=== PATIENT | male | born 1985 | race American Indian/Alaskan Native ===

== ENCOUNTER 2017-04-02 21:15 | Emergency (ER) | payer MEDICAID, MEDICARE, OTHER ==
[2017-04-02 21:15] VITALS: BMI 29.9
[2017-04-02 21:26] VITALS: BP 149/74; PULSE 82; RESP 16; TEMP 98.6; O2SAT 100
--- NOTE | 2017-04-02 21:40 | ED PDOC ---
HPI: Back Time Seen by Provider: 04/02/17 21:33 Chief Complaint (Nursing): Back Pain Chief Complaint (Provider): low back pain History Per: Patient Additional Complaint(s): 32-year-old male with history of back pain presents to emergency department with flareup of pain that started earlier today. Patient was lying down and when he tried to get up he felt sharp pain in lower back radiating to bilateral lower extremities. Patient was able to obtain some comfort by sitting up in a chair. He took a percocet at home and states this did not help the pain. Patient states he has no bowel or bladder dysfunction. He rates current pain as 8/10. PMD: [facility] Past Medical History Reviewed: Historical Data, Nursing Documentation, Vital Signs Vital Signs: Last Vital Signs Temp 98.6 F 04/02/17 21:24 Pulse 82 04/02/17 21:24 Resp 16 04/02/17 21:24 BP 149/74 04/02/17 21:24 Pulse Ox 100 04/02/17 21:24 - Medical History PMH: Asthma, Back Problems (sciatica), Migraine (hx) - Surgical History Surgical History: No Surg Hx - Family History Family History: States: No Known Family Hx - Living Arrangements Living Arrangements: With Family - Social History Current smoker - smoking cessation education provided: No Alcohol: None Drugs: Denies - Home Medications Home Medications: Ambulatory Orders Medication Instructions Recorded Ibuprofen [Motrin] 600 mg PO Q6 PRN #10 tab 03/23/14 Acetaminophen/Oxycodone Hydr 1 tab PO Q6 PRN #5 tab 03/27/14 [Percocet 325 mg-5 mg] Ibuprofen [Motrin] 600 mg PO Q6 PRN #20 tab 03/27/14 diaZEpam [Valium] 5 mg PO BID PRN #10 tab 03/27/14 Tobramycin [Tobramycin 5 ml] 1 drop RIGHTEYE Q6 #0 stefany 05/01/14 Albuterol Sulfate [Albuterol Hfa] 0.09 mg IH QID PRN #30 ml 07/25/14 Azithromycin [Zithromax] 250 mg PO DAILY #6 tab 07/25/14 Naproxen [Naprosyn] 500 mg PO BID #20 tab 12/15/14 Tizanidine Hydrochloride 4 mg PO Q6 PRN #20 tab 12/15/14 [Tizanidine HCl] traMADol [Ultram] 50 mg PO QID PRN #20 tab 12/15/14 Albuterol 1 puff IH Q4 PRN #1 inh 03/16/15 Azithromycin [Zithromax Z-Missael] 250 mg PO DAILY #1 packet 03/16/15 Fluticasone Propionate [Flonase] 1 spr ELAINE BID #1 bottle 03/16/15 Guaifenesin/Dextromethorphan 1 - 2 ter PO Q12 #20 ter 03/16/15 [Mucinex Dm 30 mg-600 mg] Ibuprofen [Motrin Tab] 800 mg PO Q8 #20 tab 08/04/15 Oxycodone HCl/Acetaminophen 1 tab PO Q4 #10 tab 08/04/15 [Percocet 325 mg-5 mg] Cyclobenzaprine [Cyclobenzaprine 10 mg PO Q8 PRN #30 tab 11/04/15 HCl] Fluticasone Propionate [Flonase] 2 spr NS DAILY PRN #1 bottle 11/04/15 Naproxen [Naprosyn] 500 mg PO BID PRN #30 tab 11/04/15 Albuterol HFA [Ventolin HFA 90 2 puff IH [id number] #1 inh 11/09/15 mcg/actuation (8 g)] Prednisone 50 mg PO DAILY #4 tablet 11/09/15 Promethazine HCl/Codeine 5 ml PO Q4 PRN #100 ml 11/09/15 [Prometh-Codein 6.25-10 mg/5 ml] traMADol [Ultram] 50 mg PO Q6H PRN #15 tab 03/27/16 Acetaminophen with Codeine 1 tab PO Q6 #10 tab 03/28/16 [Tylenol with Codeine No. 3 300 mg-30 mg] Cyclobenzaprine [Cyclobenzaprine 10 mg PO TID PRN #20 tab 04/02/17 HCl] Nabumetone [Relafen] 500 mg PO BID #20 tab 04/02/17 - Allergies Allergies/Adverse Reactions: Allergies Allergy/AdvReac Type Severity Reaction Status Date / Time No Known Allergies Allergy Verified 04/02/17 21:24 Review of Systems ROS Statement: Except As Marked, All Systems Reviewed And Found Negative Genitourinary Male: Negative for: Dysuria, Frequency, Incontinence Musculoskeletal: Positive for: Back Pain, Leg Pain Physical Exam - Reviewed Nursing Documentation Reviewed: Yes Vital Signs Reviewed: Yes - Physical Exam Appears: Positive for: Well, Non-toxic, No Acute Distress Skin: Negative for: Rash Eye Exam: Positive for: Normal appearance Cardiovascular/Chest: Positive for: Regular Rate, Rhythm Respiratory: Positive for: Normal Breath Sounds Gastrointestinal/Abdominal: Positive for: Soft. Negative for: Tenderness, Distended, Guarding, Rebound Back: Positive for: Vertebral Tenderness (Tenderness across the lumbar region with palpable muscle spasm). Negative for: L CVA Tenderness, R CVA Tenderness Extremity: Positive for: Normal ROM. Negative for: Deformity Neurologic/Psych: Positive for: Alert, Oriented, Gait (steady) - ECG O2 Sat by Pulse Oximetry: 100 Pulse Ox Interpretation: Normal Medical Decision Making Medical Decision Making: Impression: Back pain and sciatica, for Plan: IM toradol PO flexeril PO tylenol Patient feels better after meds given. Rx given for skelaxin and relafen. Patient was advised to follow up with clinic in 1-2 days. Disposition - Clinical Impression Clinical Impression: Sciatica, Back pain - Patient ED Disposition Is Patient to be Admitted: No Counseled Patient/Family Regarding: Diagnosis, Need For Followup, Rx Given - Disposition Referrals: [facility] [Outside] Disposition: Routine/Home Disposition Time: 22:46 Condition: STABLE Additional Instructions: Take rx meds as directed as needed for pain. Follow up with clinic in 1-2 days. Prescriptions: Cyclobenzaprine [Cyclobenzaprine HCl] 10 mg PO TID PRN #20 tab PRN Reason: Muscle Spasm Nabumetone [Relafen] 500 mg PO BID #20 tab Instructions: Back Pain (ED), Sciatica (ED) Forms: [employer] (Turkish), [facility] ED School/Work Excuse
== END 2017-04-02 22:48 | disposition home or self-care (01) ==
LOC: H.ER 21:15
DX: M54.30 Sciatica, unspecified side (principal)
CPT/HCPCS: 96372; 99282; J1885

== ENCOUNTER 2017-11-01 21:43 | Emergency (ER) | payer SELFPAY ==
[2017-11-01 21:43] VITALS: BMI 29.9
[2017-11-01 21:53] VITALS: BP 133/85; PULSE 68; RESP 16; TEMP 98; O2SAT 98
--- NOTE | 2017-11-01 22:52 | ED PDOC ---
Upper Extremity Pain/Injury Time Seen by Provider: 11/01/17 22:02 Chief Complaint (Nursing): Abnormal Skin Integrity History Per: Patient History/Exam Limitations: no limitations Additional Complaint(s): 32-year-old male presents to the emergency room after sustaining a laceration to the left second digit when he was using a knife to open an air sealed bag of frozen meat. Records no numbness, decrease in range of motion, any other injury. Has no additional complaints. Tetanus vaccination is up-to-date. Past Medical History Vital Signs: Last Vital Signs Temp 98.0 F 11/01/17 21:52 Pulse 68 11/01/17 21:52 Resp 16 11/01/17 21:52 BP 133/85 11/01/17 21:52 Pulse Ox 98 11/01/17 21:52 - Medical History PMH: Asthma, Back Problems (sciatica), GERD, Migraine (hx) - Family History Family History: States: Unknown Family Hx - Immunization History Hx Tetanus Toxoid Vaccination: Yes Hx Influenza Vaccination: Yes Hx Pneumococcal Vaccination: Yes - Home Medications Home Medications: Ambulatory Orders Medication Instructions Recorded Ibuprofen [Motrin] 600 mg PO Q6 PRN #10 tab 03/23/14 Acetaminophen/Oxycodone Hydr 1 tab PO Q6 PRN #5 tab 03/27/14 [Percocet 325 mg-5 mg] Ibuprofen [Motrin] 600 mg PO Q6 PRN #20 tab 03/27/14 diaZEpam [Valium] 5 mg PO BID PRN #10 tab 03/27/14 Tobramycin [Tobramycin 5 ml] 1 drop RIGHTEYE Q6 #0 stefany 05/01/14 Albuterol Sulfate [Albuterol Hfa] 0.09 mg IH QID PRN #30 ml 07/25/14 Azithromycin [Zithromax] 250 mg PO DAILY #6 tab 07/25/14 Naproxen [Naprosyn] 500 mg PO BID #20 tab 12/15/14 Tizanidine Hydrochloride 4 mg PO Q6 PRN #20 tab 12/15/14 [Tizanidine HCl] traMADol [Ultram] 50 mg PO QID PRN #20 tab 12/15/14 Albuterol 1 puff IH Q4 PRN #1 inh 03/16/15 Azithromycin [Zithromax Z-Missael] 250 mg PO DAILY #1 packet 03/16/15 Fluticasone Propionate [Flonase] 1 spr ELAINE BID #1 bottle 03/16/15 Guaifenesin/Dextromethorphan 1 - 2 ter PO Q12 #20 ter 03/16/15 [Mucinex Dm 30 mg-600 mg] Ibuprofen [Motrin Tab] 800 mg PO Q8 #20 tab 08/04/15 Oxycodone HCl/Acetaminophen 1 tab PO Q4 #10 tab 08/04/15 [Percocet 325 mg-5 mg] Cyclobenzaprine [Cyclobenzaprine 10 mg PO Q8 PRN #30 tab 11/04/15 HCl] Fluticasone Propionate [Flonase] 2 spr NS DAILY PRN #1 bottle 11/04/15 Naproxen [Naprosyn] 500 mg PO BID PRN #30 tab 11/04/15 Albuterol HFA [Ventolin HFA 90 2 puff IH [id number] #1 inh 11/09/15 mcg/actuation (8 g)] Prednisone 50 mg PO DAILY #4 tablet 11/09/15 Promethazine HCl/Codeine 5 ml PO Q4 PRN #100 ml 11/09/15 [Prometh-Codein 6.25-10 mg/5 ml] traMADol [Ultram] 50 mg PO Q6H PRN #15 tab 03/27/16 Acetaminophen with Codeine 1 tab PO Q6 #10 tab 03/28/16 [Tylenol with Codeine No. 3 300 mg-30 mg] Cyclobenzaprine [Cyclobenzaprine 10 mg PO TID PRN #20 tab 04/02/17 HCl] Nabumetone [Relafen] 500 mg PO BID #20 tab 04/02/17 - Allergies Allergies/Adverse Reactions: Allergies Allergy/AdvReac Type Severity Reaction Status Date / Time No Known Allergies Allergy Verified 04/02/17 21:24 Review of Systems Constitutional: Negative for: Fever, Malaise Musculoskeletal: Negative for: Arm Pain, Back Pain Skin: Negative for: Rash, Lesions Physical Exam - Physical Exam Comments: GENERAL APPEARANCE: Patient is awake, alert, oriented x 3, in mild painful distress. SKIN: Warm, (-) rash, (-) lesions. UPPER EXTREMITY: (+) 2 cm L shaped laceration to the volar distal L 2nd digit, (-) tenderness, (-) swelling, (-) ecchymosis, (-) deformity. Tendon function intact. (-) distal neurovascular deficit. 2 point discrimination. Remainder of hand, digits and wrist: (-) injury. - ECG O2 Sat by Pulse Oximetry: 98 Medical Decision Making Medical Decision Making: Plan - Laceration repair with Dermabond - Tylenol PO Advised to follow up with the clinic in 1-2 days without fail. Advised on proper wound care. Return to the emergency room at any time for any new or worsening symptoms. Patient states he fully agrees with and understands discharge instructions. States that he agrees with the plan and disposition. Verbalized and repeated discharge instructions and plan. I have given the patient opportunity to ask any additional questions. Procedures - Laceration/Wound Repair Left Finger Wound Length (cm): 2 Wound's Depth, Shape: linear (L shaped ) Wound Explored: clean (irrigated with water) Wound Repaired With: Skin adhesive Wound Complexity: Simple Progress: Patient tolerated the procedure well. Disposition - Clinical Impression Clinical Impression: Finger laceration - Patient ED Disposition Is Patient to be Admitted: No Counseled Patient/Family Regarding: Diagnosis, Need For Followup - Disposition Referrals: [facility] [Outside] Disposition: Routine/Home Disposition Time: 22:10 Condition: STABLE Additional Instructions: Thank you for letting us take care of you today. You were treated for finger laceration. The emergency medical care you received today was directed at your acute symptoms. Avoid getting dermabond wet. Return to the Emergency Department if your symptoms worsen, do not improve, or if you have any other problems. Please contact your doctor in 2 days for re-evaluation and follow up / or call one of the physicians/clinics you have been referred to that are listed on the Patient Visit Information form that is included in your discharge packet. Bring any paperwork you were given at discharge with you along with any medications you are taking to your follow up visit. Our treatment cannot replace ongoing medical care by a primary care provider (PCP) outside of the emergency department. Thank you for allowing the [facility] team to be part of your care today. 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
== END 2017-11-01 23:12 | disposition home or self-care (01) ==
LOC: H.ER 21:43
DX: S61.211A Laceration without foreign body of left index finger without damage to nail, initial encounter (principal); W26.0XXA Contact with knife, initial encounter; Y92.89 Other specified places as the place of occurrence of the external cause; K21.9 Gastro-esophageal reflux disease without esophagitis; J45.909 Unspecified asthma, uncomplicated

== ENCOUNTER 2018-03-11 11:01 | Emergency (ER) | payer OTHER ==
[2018-03-11 11:01] VITALS: BMI 29.9
[2018-03-11 11:18] VITALS: BP 123/82; PULSE 94; TEMP 97; O2SAT 98
[2018-03-11 11:47] VITALS: RESP 16
--- NOTE | 2018-03-11 12:34 | ED PDOC ---
Upper Extremity Pain/Injury Time Seen by Provider: 03/11/18 11:41 Chief Complaint (Nursing): Upper Extremity Problem/Injury Chief Complaint (Provider): Left upper arm pain, hit against a wall History Per: Patient History/Exam Limitations: no limitations Onset/Duration Of Symptoms: Days Current Symptoms Are (Timing): Still Present Additional Complaint(s): 32 yo male with history of GERD and asthma presents for evaluation of left upper arm pain after walking into a wall. No fever/chills. Pt states he is unable to do the physical work at his job due to pain. PT took tylenol at home. Past Medical History Reviewed: Historical Data, Nursing Documentation, Vital Signs Vital Signs: Last Vital Signs Temp 97 F L 03/11/18 11:43 Pulse 94 H 03/11/18 11:43 Resp 16 03/11/18 11:43 BP 123/82 03/11/18 11:43 Pulse Ox 98 03/11/18 11:43 - Medical History PMH: Asthma, Back Problems (sciatica), GERD, Migraine (hx) - Surgical History Surgical History: No Surg Hx - Family History Family History: States: Unknown Family Hx - Living Arrangements Living Arrangements: With Family - Social History Current smoker - smoking cessation education provided: No Alcohol: None Drugs: Denies - Immunization History Hx Tetanus Toxoid Vaccination: Yes Hx Influenza Vaccination: Yes Hx Pneumococcal Vaccination: Yes - Home Medications Home Medications: Ambulatory Orders Medication Instructions Recorded Ibuprofen [Motrin] 600 mg PO Q6 PRN #10 tab 03/23/14 Acetaminophen/Oxycodone Hydr 1 tab PO Q6 PRN #5 tab 03/27/14 [Percocet 325 mg-5 mg] Ibuprofen [Motrin] 600 mg PO Q6 PRN #20 tab 03/27/14 diaZEpam [Valium] 5 mg PO BID PRN #10 tab 03/27/14 Tobramycin [Tobramycin 5 ml] 1 drop RIGHTEYE Q6 #0 stefany 05/01/14 Albuterol Sulfate [Albuterol Hfa] 0.09 mg IH QID PRN #30 ml 07/25/14 Azithromycin [Zithromax] 250 mg PO DAILY #6 tab 07/25/14 Naproxen [Naprosyn] 500 mg PO BID #20 tab 12/15/14 Tizanidine Hydrochloride 4 mg PO Q6 PRN #20 tab 12/15/14 [Tizanidine HCl] traMADol [Ultram] 50 mg PO QID PRN #20 tab 12/15/14 Albuterol 1 puff IH Q4 PRN #1 inh 03/16/15 Azithromycin [Zithromax Z-Missael] 250 mg PO DAILY #1 packet 03/16/15 Fluticasone Propionate [Flonase] 1 spr ELAINE BID #1 bottle 03/16/15 Guaifenesin/Dextromethorphan 1 - 2 ter PO Q12 #20 ter 03/16/15 [Mucinex Dm 30 mg-600 mg] Ibuprofen [Motrin Tab] 800 mg PO Q8 #20 tab 08/04/15 Oxycodone HCl/Acetaminophen 1 tab PO Q4 #10 tab 08/04/15 [Percocet 325 mg-5 mg] Cyclobenzaprine [Cyclobenzaprine 10 mg PO Q8 PRN #30 tab 11/04/15 HCl] Fluticasone Propionate [Flonase] 2 spr NS DAILY PRN #1 bottle 11/04/15 Naproxen [Naprosyn] 500 mg PO BID PRN #30 tab 11/04/15 Albuterol HFA [Ventolin HFA 90 2 puff IH [id number] #1 inh 11/09/15 mcg/actuation (8 g)] Prednisone 50 mg PO DAILY #4 tablet 11/09/15 Promethazine HCl/Codeine 5 ml PO Q4 PRN #100 ml 11/09/15 [Prometh-Codein 6.25-10 mg/5 ml] traMADol [Ultram] 50 mg PO Q6H PRN #15 tab 03/27/16 Acetaminophen with Codeine 1 tab PO Q6 #10 tab 03/28/16 [Tylenol with Codeine No. 3 300 mg-30 mg] Cyclobenzaprine [Cyclobenzaprine 10 mg PO TID PRN #20 tab 04/02/17 HCl] Nabumetone [Relafen] 500 mg PO BID #20 tab 04/02/17 Naproxen [Naprosyn] 500 mg PO BID PRN #20 tablet 03/11/18 - Allergies Allergies/Adverse Reactions: Allergies Allergy/AdvReac Type Severity Reaction Status Date / Time No Known Allergies Allergy Verified 04/02/17 21:24 Review of Systems ROS Statement: Except As Marked, All Systems Reviewed And Found Negative Constitutional: Negative for: Fever, Chills Musculoskeletal: Positive for: Other (arm pain) Skin: Negative for: Bruising Physical Exam - Reviewed Nursing Documentation Reviewed: Yes Vital Signs Reviewed: Yes - Physical Exam Appears: Positive for: Well, Non-toxic, No Acute Distress Head Exam: Positive for: ATRAUMATIC, NORMAL INSPECTION, NORMOCEPHALIC Skin: Positive for: Normal Color (No ecchymosis, no abrasions, no erythema of the left arm ), Warm Eye Exam: Positive for: Normal appearance ENT: Positive for: Normal ENT Inspection Neck: Positive for: Normal Respiratory: Negative for: Accessory Muscle Use, Respiratory Distress Pulses-Radial (L): 2+ Pulses-Radial (R): 2+ Back: Positive for: Normal Inspection Extremity: Positive for: Normal ROM, Other (Tenderness of the humerus ). Negative for: Deformity, Swelling Neurologic/Psych: Positive for: Alert, Oriented - ECG O2 Sat by Pulse Oximetry: 98 Medical Decision Making Medical Decision Making: XR without acute fracture or dislocation. Disposition - Clinical Impression Clinical Impression: Arm contusion - Patient ED Disposition Is Patient to be Admitted: No Counseled Patient/Family Regarding: Diagnosis, Need For Followup, Rx Given - Disposition Referrals: Chela Kumar MD [Staff Provider] - Disposition: Routine/Home Disposition Time: 12:29 Condition: STABLE Prescriptions: Naproxen [Naprosyn] 500 mg PO BID PRN #20 tablet PRN Reason: Pain Instructions: Contusion (DC) Forms: [employer] (Malaysian), [facility] ED School/Work Excuse
--- NOTE | 2018-03-11 13:22 | RAD ---
PROCEDURE: Radiographs of the left humerus. HISTORY: Left upper arm pain COMPARISON: None. FINDINGS: BONES: Normal. No fracture or focal lesion. SOFT TISSUES: Normal. OTHER FINDINGS: None. IMPRESSION: Normal radiographNo evidence acute displaced fracture nor dislocation. If symptoms persist or occult fracture suspected clinically recommend repeat radiographs in 5-10 days as most fractures should become radiographically evident in this timeframe. S of left humerus.
== END 2018-03-11 12:44 | disposition home or self-care (01) ==
LOC: H.ER 11:01
DX: J45.909 Unspecified asthma, uncomplicated (principal)

== ENCOUNTER 2018-08-20 13:04 | Emergency (ER) | payer OTHER ==
[2018-08-20 13:04] VITALS: BMI 29.9
[2018-08-20 14:12] VITALS: O2SAT 100
--- NOTE | 2018-08-20 17:05 | ED PDOC ---
HPI: Abdomen Time Seen by Provider: 08/20/18 16:02 Chief Complaint (Nursing): Abdominal Pain Chief Complaint (Provider): Abdominal Pain History Per: Patient History/Exam Limitations: no limitations Onset/Duration Of Symptoms: Days (x3) Current Symptoms Are (Timing): Still Present Location Of Pain/Discomfort: Epigastric Quality Of Discomfort: "Pain" Associated Symptoms: Fever, Vomiting. denies: Diarrhea Additional Complaint(s): 33 year old male with a history of gastritis presents to the ED with midepigastric pain onset Saturday associated subjective fever and vomiting. He reports pain is worse today but denies any diarrhea. No further complaints. Has had similar episode in past which ended up being gastritis. PMD: [facility] Past Medical History Reviewed: Historical Data, Nursing Documentation, Vital Signs Vital Signs: Last Vital Signs Temp 99.3 F 08/20/18 14:09 Pulse 109 H 08/20/18 14:09 Resp 16 08/20/18 14:09 BP 120/70 08/20/18 14:09 Pulse Ox 100 08/20/18 14:09 - Medical History PMH: Asthma, Back Problems (sciatica), GERD, Migraine - Surgical History Surgical History: No Surg Hx - Family History Family History: States: Unknown Family Hx - Social History Current smoker - smoking cessation education provided: No Alcohol: None Drugs: Denies - Immunization History Hx Tetanus Toxoid Vaccination: Yes Hx Influenza Vaccination: Yes Hx Pneumococcal Vaccination: Yes - Home Medications Home Medications: Ambulatory Orders Medication Instructions Recorded Ibuprofen [Motrin] 600 mg PO Q6 PRN #10 tab 03/23/14 Acetaminophen/Oxycodone Hydr 1 tab PO Q6 PRN #5 tab 03/27/14 [Percocet 325 mg-5 mg] Ibuprofen [Motrin] 600 mg PO Q6 PRN #20 tab 03/27/14 diaZEpam [Valium] 5 mg PO BID PRN #10 tab 03/27/14 Tobramycin [Tobramycin 5 ml] 1 drop RIGHTEYE Q6 #0 stefany 05/01/14 Albuterol Sulfate [Albuterol Hfa] 0.09 mg IH QID PRN #30 ml 07/25/14 RX: Azithromycin [Zithromax] 250 mg PO DAILY #6 tab 07/25/14 Naproxen [Naprosyn] 500 mg PO BID #20 tab 12/15/14 RX: traMADol [Ultram] 50 mg PO QID PRN #20 tab 12/15/14 Tizanidine Hydrochloride 4 mg PO Q6 PRN #20 tab 12/15/14 [Tizanidine HCl] Azithromycin [Zithromax Z-Missael] 250 mg PO DAILY #1 packet 03/16/15 Fluticasone Propionate [Flonase] 1 spr ELAINE BID #1 bottle 03/16/15 Guaifenesin/Dextromethorphan 1 - 2 ter PO Q12 #20 ter 03/16/15 [Mucinex Dm 30 mg-600 mg] RX: Albuterol 1 puff IH Q4 PRN #1 inh 03/16/15 Ibuprofen [Motrin Tab] 800 mg PO Q8 #20 tab 08/04/15 Oxycodone HCl/Acetaminophen 1 tab PO Q4 #10 tab 08/04/15 [Percocet 325 mg-5 mg] Cyclobenzaprine [Cyclobenzaprine 10 mg PO Q8 PRN #30 tab 11/04/15 HCl] Fluticasone Propionate [Flonase] 2 spr NS DAILY PRN #1 bottle 11/04/15 RX: Naproxen [Naprosyn] 500 mg PO BID PRN #30 tab 11/04/15 RX: Albuterol HFA [Ventolin HFA 90 2 puff IH [id number] #1 inh 11/09/15 mcg/actuation (8 g)] RX: Prednisone 50 mg PO DAILY #4 tablet 11/09/15 RX: Promethazine HCl/Codeine 5 ml PO Q4 PRN #100 ml 11/09/15 [Prometh-Codein 6.25-10 mg/5 ml] RX: traMADol [Ultram] 50 mg PO Q6H PRN #15 tab 03/27/16 Acetaminophen with Codeine 1 tab PO Q6 #10 tab 03/28/16 [Tylenol with Codeine No. 3 300 mg-30 mg] Cyclobenzaprine [Cyclobenzaprine 10 mg PO TID PRN #20 tab 04/02/17 HCl] Nabumetone [Relafen] 500 mg PO BID #20 tab 04/02/17 RX: Naproxen [Naprosyn] 500 mg PO BID PRN #20 tablet 03/11/18 Famotidine [Pepcid] 20 mg PO BID PRN #10 tab 08/20/18 - Allergies Allergies/Adverse Reactions: Allergies Allergy/AdvReac Type Severity Reaction Status Date / Time No Known Allergies Allergy Verified 08/20/18 14:09 Review of Systems ROS Statement: Except As Marked, All Systems Reviewed And Found Negative Constitutional: Positive for: Fever Gastrointestinal: Positive for: Vomiting, Abdominal Pain. Negative for: Diarrhea Physical Exam - Reviewed Nursing Documentation Reviewed: Yes Vital Signs Reviewed: Yes - Physical Exam Appears: Positive for: Non-toxic, No Acute Distress Head Exam: Positive for: ATRAUMATIC, NORMOCEPHALIC Skin: Positive for: Normal Color, Warm, Dry Eye Exam: Positive for: EOMI, Normal appearance, PERRL Cardiovascular/Chest: Positive for: Regular Rate, Rhythm. Negative for: Murmur Respiratory: Positive for: Normal Breath Sounds. Negative for: Respiratory Dist ress Gastrointestinal/Abdominal: Positive for: Soft, Tenderness (midepigastric tenderness, no RUQ or RLQ tenderness ). Negative for: Mass, Guarding, Rebound Extremity: Positive for: Normal ROM (upper and lower). Negative for: Pedal Edema, Deformity Neurologic/Psych: Positive for: Alert, Oriented (x3) - Laboratory Results Result Diagrams: 08/20/18 05:13 08/20/18 05:13 - ECG O2 Sat by Pulse Oximetry: 100 (RA) Pulse Ox Interpretation: Normal Medical Decision Making Medical Decision Making: Time: 1647 Upper abdominal paiun rule out gastritis, gallbladder disease and pancreatitis --CMP --Lipase --CBC --Pepcid 20 mg IVP --Protonix 40 mg IVP --US gallbladder Time: 1827 --Lipase normal Time: 1840 US gallbladder FINDINGS: Examination limited by habitus. LIVER: Measures 16.3 cm in length and appears within normal limits of shape in echotexture. No focal hepatic mass identified. The main portal vein appears patent with normal directional flow. No intrahepatic bile duct dilatation. GALLBLADDER: No gallstones. No gallbladder wall thickening or pericholecystic edema. Negative sonographic Rodriguez's sign as assessed by the crossband layer. COMMON BILE DUCT: Measures 4 mm. PANCREAS: Not well-visualized. RIGHT KIDNEY: Measures approximately 11.4 x 4.8 x 6.6 cm. No obstructing calculus or hydronephrosis identified. AORTA: Limited visualization appears grossly unremarkable. IVC: Limited visualization appears grossly unremarkable. OTHER FINDINGS: None . IMPRESSION: Limited study. No acute findings. Time: 0 Patient has tolerated PO and feels improved, will be discharged. Patient instructed to follow up with [facility]. given RX pepcid and told him to follow up with [facility] and from there they can refer him to GI if needed, avoid alcohol, caffeine Scribe Attestation: Documented by Bernie Sandy, acting as a scribe for Carmine Irwin MD. Provider Scribe Attestation: All medical record entries made by the Scribe were at my direction and personally dictated by me. I have reviewed the chart and agree that the record accurately reflects my personal performance of the history, physical exam, medical decision making, and the department course for this patient. I have also personally directed, reviewed, and agree with the discharge instructions and disposition. Disposition - Clinical Impression Clinical Impression: Gastritis - Patient ED Disposition Is Patient to be Admitted: No Counseled Patient/Family Regarding: Studies Performed, Diagnosis, Need For Followup - Disposition Disposition: Routine/Home Disposition Time: 19:11 Condition: IMPROVED Additional Instructions: follow up with your primary doctor at [facility] in 2 days return to the ED with any worsening or concerning symptoms Prescriptions: Famotidine [Pepcid] 20 mg PO BID PRN #10 tab PRN Reason: Heartburn Instructions: Gastritis (DC) Forms: [email or web address] (Mohawk), [facility] ED School/Work Excuse
[2018-08-20 17:19] LABS: BASO % 0.2 % (0.0-2.0); EOS % 0.5 % (0.0-4.0); HEMOGLOBIN 15.6 g/dL (12.0-18.0); LYMPH # 1.1 K/uL (1.0-4.3); LYMPH % 14.7 % (20.0-40.0); MEAN CELL VOLUME 84.1 fl (80.0-94.0); MEAN CORPUSCULAR HEMOGLOBIN 27.5 pg (27.0-31.0); MEAN CORPUSCULAR HGB CONC 32.8 g/dL (33.0-37.0); MEAN PLATELET VOLUME 8.5 fl (7.2-11.7); MONO # 0.7 K/uL (0.0-0.8); MONO % 9.2 % (0.0-10.0); NEUT # 5.5 K/uL (1.8-7.0); NEUT % 75.4 % (50.0-75.0); NRBC % 0.2 % (0.0-0.0); RBC 5.64 Mil/uL (4.40-5.90); RED CELL DISTRIBUTION WIDTH 13.2 % (11.5-14.5); WHITE BLOOD COUNT 7.2 K/uL (4.8-10.8)
[2018-08-20 17:32] LABS: ALB/GLOB RATIO 1.4 (1.0-2.1); ALBUMIN 4.5 g/dL (3.5-5.0); ALT/SGPT 34 U/L (21-72); AST/SGOT 29 U/L (17-59); BLOOD UREA NITROGEN 12 mg/dl (9-20); CALCIUM 9.5 mg/dL (8.4-10.2); GFR NON-AFRICAN AMERICAN > 60; LIPASE 118 U/L (23-300)
--- NOTE | 2018-08-20 18:43 | US ---
Date of service: 08/20/2018 HISTORY: abd pain COMPARISON: None available. TECHNIQUE: Sonographic evaluation of the right upper quadrant of the abdomen. FINDINGS: Examination limited by habitus. LIVER: Measures 16.3 cm in length and appears within normal limits of shape in echotexture. No focal hepatic mass identified. The main portal vein appears patent with normal directional flow. No intrahepatic bile duct dilatation. GALLBLADDER: No gallstones. No gallbladder wall thickening or pericholecystic edema. Negative sonographic Rodriguez's sign as assessed by the latin professor. COMMON BILE DUCT: Measures 4 mm. PANCREAS: Not well-visualized. RIGHT KIDNEY: Measures approximately 11.4 x 4.8 x 6.6 cm. No obstructing calculus or hydronephrosis identified. AORTA: Limited visualization appears grossly unremarkable. IVC: Limited visualization appears grossly unremarkable. OTHER FINDINGS: None . IMPRESSION: Limited study. No acute findings.
[2018-08-20 19:20] VITALS: BP 133/76; PULSE 106; RESP 18; TEMP 98.8
== END 2018-08-20 19:27 | disposition home or self-care (01) ==
LOC: H.ER 13:04
DX: K29.70 Gastritis, unspecified, without bleeding (principal)
CPT/HCPCS: 76705; 80053; 83690; 85025; 96374; 96375; 99284; C9113